=== PATIENT | male | born 1985 | race Caucasian/White ===

== ENCOUNTER → 2017-11-05 | Outpatient (REF) | payer OTHER ==
[2017-11-05 18:17] LABS: CHLAMYDIA DNA AMPLIFICATION NEGATIVE (NEGATIVE); GC DNA AMPLIFICATION NEGATIVE (NEGATIVE)
== END ==
LOC: M LAB REF 16:32
DX: Z11.3 Encounter for screening for infections with a predominantly sexual mode of transmission (principal)